=== PATIENT | male | born 2000 | race African-American/Black ===

== ENCOUNTER 2020-02-19 20:39 | Emergency (ER) | payer OTHER ==
[~2020-02-19] VITALS: Ht 182.9 cm; Wt 92.7 kg
--- NOTE | 2020-02-19 20:45 | ED Integumentary General ---
General Chief Complaint: Bite-Animal/Human/Insect Stated Complaint: SPIDER BITE ON LEG Source: patient History of Present Illness Date Seen by Provider: Feb 19, 2020 Time Seen by Provider: 20:45 Initial Comments 19-year-old male presents with an abscess on his left thigh. Reports that he thinks is from a spider bite. Reports that he had one about 2 weeks ago he can a cleared up and then a second one a little further up from that one presented. Complains of significant pain. There is some firmness in the area, some mild drainage. He denies any fevers or chills. He has not been seen for this prior. Allergies and Home Medications Allergies Coded Allergies: No Known Drug Allergies (Unverified , 02/19/20) Patient Home Medication List Home Medication List Reviewed: Yes Review of Systems Review of Systems Constitutional: No chills, No fever Respiratory: no symptoms reported Cardiovascular: no symptoms reported Musculoskeletal: see HPI Skin: see HPI Psychiatric/Neurological: No Symptoms Reported Past Aenrlwm-Lacfjm-Syvasx Hx Past Med/Social Hx: Reviewed Nursing Past Med/Soc Hx Patient Social History Recent Foreign Travel: No Contact w/Someone Who Travel: No Physical Exam Vital Signs Vital Signs - First Documented 02/19/20 20:49 Temp 36.1 Pulse 94 Resp 18 B/P (MAP) 139/86 (103) Pulse Ox 100 O2 Delivery Room Air Capillary Refill : General Appearance: no apparent distress Neck: full range of motion Cardiovascular: regular rate, rhythm, no edema Respiratory: lungs clear, normal breath sounds Gastrointestinal: non tender, soft Extremities: swelling Skin: other Skin Problem Location: lower extremities Skin Problem Character: abscess (with moderate surrounding erythema and induration) Progress/Results/Core Measures Results/Orders My Orders Orders - SYDNIE SINGLETARY DO Wound Culture (02/19/20 20:49) Fentanyl Injection (Sublimaze Injection (02/19/20 21:00) Ceftriaxone For Im Use (Rocephin For Im (02/19/20 21:00) Lidocaine 1% Inj 20 Ml (Xylocaine 1% Inj (02/19/20 21:00) Sulfamethoxazole/Trimet Ds Tab (Bactrim (02/19/20 21:00) Vital Signs/I&O 02/19/20 20:49 Temp 36.1 Pulse 94 Resp 18 B/P (MAP) 139/86 (103) Pulse Ox 100 O2 Delivery Room Air Departure Impression Primary Impression: Abscess of left thigh Disposition: HOME, SELF-CARE Condition: Stable Departure-Patient Inst. Patient Instructions: Methicillin-Resistant Staphylococcus aureus (MRSA), Skin Abscess Add. Discharge Instructions: Warm moist compress to affected area Please express drainage 2-4 times daily Take antibiotic as directed Follow-up with a primary care provider in 2 days for recheck of today symptoms All discharge instructions reviewed with patient and/or family. Voiced understanding. Scripts Sulfamethoxazole/Trimethoprim (Bactrim Ds Tablet) 1 Each Tablet 1 EACH PO BID for 10 Days, #20 TAB Prov: SYDNIE SINGLETARY DO 02/19/20 SYDNIE SINGLETARY DO Feb 19, 2020 20:45
[2020-02-19 20:49] VITALS: BP 139/86
[2020-02-19] MEDS ORDERED: SULF1TAB35 PO (20:57)
[2020-02-19] MEDS ORDERED: TRIM/SULFAMETH 160/800 (SEPTRA DS) TAB PO ONE (21:00)
[2020-02-19] MEDS ORDERED: cefTRIAXone 1,000 MG/2.86 ml vial (IM ONLY) IM ONE (21:00)
[2020-02-19] MEDS ORDERED: LIDOCAINE 1% INJ 20 ML 20 ML VIAL INJ ONE (21:00)
[2020-02-19] MEDS ORDERED: fentaNYL INJECTION 100 MCG/2 ML AMP IM ONE (21:00)
== END 2020-02-19 21:10 | disposition home or self-care (01) ==
LOC: ER FS 20:42
DX: L02.416 Cutaneous abscess of left lower limb (principal)
CPT/HCPCS: 87070; 87077; 87205

== ENCOUNTER 2020-03-22 13:54 | Emergency (ER) | payer OTHER ==
[~2020-03-22 13:54] MED LIST: SULF1TAB35 PO
--- NOTE | 2020-03-22 14:37 | Diagnostic Imaging Report ---
Indication: Dyspnea on exertion for two weeks. Comparison: None. Discussion: Two views of the chest were obtained. No consolidation, pleural fluid or pneumothorax. No osseous abnormality. Normal heart size. Impression: Negative chest. Dictated by: Dictated on workstation # [id number]
[2020-03-22] MEDS ORDERED: RT-ALBUINH INH (14:49)
[2020-03-22] MEDS ORDERED: MUPI22OI2 TP (14:49)
[2020-03-22] MEDS ORDERED: DOXY100T2 PO (14:49)
--- NOTE | 2020-03-22 14:52 | ED General ---
General Chief Complaint: General Problems/Pain Stated Complaint: LT LEG PAIN,SOA Nursing Triage Note: Has had abscesses on left leg and was seen 1 month ago and put on antibiotics. States he still has a hard spot on leg and it is still itchy. Is no longer draining. Also states he has a hard time getting a deep breath for almost one week. No fevers and no sick contacts. Nursing Sepsis Screen: No Definite Risk History of Present Illness Date Seen by Provider: Mar 22, 2020 Time Seen by Provider: 14:49 Initial Comments Pt presents with impetigo-like lesions of left thigh. He was here about a month ago for an abscess and was placed on Bactrim. He does not report any drainage. He also notes feeling short of breath with exertion some recently. No cough, no fever, no history of asthma although he does smoke. Allergies and Home Medications Allergies Coded Allergies: No Known Drug Allergies (Unverified , 02/19/20) Home Medications Albuterol Sulfate 1 Puff Puff, 2 PUFF INH Q4H PRN for SHORTNESS OF BREATH 1 PUFF = 90 MCG Prescribed by: GABRIEL KOROMA on 03/22/20 1449 Doxycycline Hyclate 100 Mg Tablet, 100 MG PO BID Prescribed by: GABRIEL KOROMA on 03/22/20 1449 Mupirocin 22 Gm Oint...g., 22 GM TP BID Prescribed by: GABRIEL KOROMA on 03/22/20 1449 Sulfamethoxazole/Trimethoprim 1 Each Tablet, 1 EACH PO BID Prescribed by: SYDNIE SINGLETARY on 02/19/202056 Patient Home Medication List Home Medication List Reviewed: Yes Review of Systems Review of Systems Constitutional: No chills, No fever EENTM: No nose congestion, No throat pain Respiratory: No cough; dyspnea on exertion, short of breath; No wheezing Gastrointestinal: No nausea, No vomiting Skin: lesions Psychiatric/Neurological: No Symptoms Reported Past Dltnjtx-Zkabbu-Zgfepk Hx Patient Social History Alcohol Use: Occasionally Uses Recreational Drug Use: No Smoking Status: Current Someday Smoker 2nd Hand Smoke Exposure: No Recent Foreign Travel: No Contact w/Someone Who Travel: No Recent Infectious Disease Expo: No Recent Hopitalizations: No Seasonal Allergies Seasonal Allergies: No Past Medical History Surgeries: Yes Orthopedic Respiratory: No Cardiac: No Neurological: No Genitourinary: No Gastrointestinal: No Musculoskeletal: No Endocrine: No HEENT: No Cancer: No Psychosocial: No Integumentary: No Blood Disorders: No Physical Exam Vital Signs Vital Signs - First Documented 03/22/20 14:04 Temp 36.7 Pulse 80 Resp 16 B/P (MAP) 132/79 (96) Pulse Ox 99 Capillary Refill : Less Than 3 Seconds Height, Weight, BMI Height: '" Weight: lbs. oz. kg; BMI Method: General Appearance: No Apparent Distress, WD/WN HEENT: Normal ENT Inspection Neck: Supple Respiratory: Lungs Clear, Normal Breath Sounds Cardiovascular: Regular Rate, Rhythm Extremity: Normal Inspection Neurologic/Psychiatric: Alert, Oriented x3, No Motor/Sensory Deficits Skin: Other (Crusted lesions left hip) Progress/Results/Core Measures Suspected Sepsis Recent Fever Within 48 Hours: No Infection Criteria Present: None New/Unexplained Altered Menta: No Sepsis Screen: No Definite Risk SIRS Temperature: Pulse: 80 Respiratory Rate: 16 Blood Pressure 132 /79 Mean: 96 Results/Orders My Orders Orders - GABRIEL KOROMA MD Chest Pa/Lat (2 View) (03/22/20 14:15) Vital Signs/I&O 03/22/20 14:04 Temp 36.7 Pulse 80 Resp 16 B/P (MAP) 132/79 (96) Pulse Ox 99 Capillary Refill : Less Than 3 Seconds Blood Pressure Mean: 96 Progress Note : Time: 14:54 Progress Note CXR clear. Meds prescribed for impetigo, albuterol for shortness of breath. Departure Impression Primary Impression: Impetigo Additional Impression: Dyspnea Disposition: 01 HOME, SELF-CARE Condition: Stable Departure-Patient Inst. Decision time for Depature: 14:49 Referrals: NO,LOCAL PHYSICIAN (PCP) Primary Care Physician Patient Instructions: Impetigo (DC) Scripts Albuterol Sulfate (VENTOLIN HFA) 1 Puff Puff 2 PUFF INH Q4H PRN for SHORTNESS OF BREATH, #1 INHALER 0 Refills 1 PUFF = 90 MCG Prov: GABRIEL KOROMA MD 03/22/20 Mupirocin (Mupirocin) 22 Gm Oint...g. 22 GM TP BID for 10 Days, #1 TUBE Prov: GABRIEL KOROMA MD 03/22/20 Doxycycline Hyclate (Doxycycline Hyclate) 100 Mg Tablet 100 MG PO BID, #14 TAB 0 Refills Prov: GABRIEL KOROMA MD 03/22/20 GABRIEL KOROMA MD Mar 22, 2020 14:51
[2020-03-22 15:20] VITALS: BP 160/79
== END 2020-03-22 15:21 | disposition home or self-care (01) ==
LOC: EDUNIT# 13:54 → ER FS 13:56
DX: L01.00 Impetigo, unspecified (principal); R06.00 Dyspnea, unspecified; F17.200 Nicotine dependence, unspecified, uncomplicated
CPT/HCPCS: 71046